=== PATIENT | female | born 1955 | race Caucasian/White ===

== ENCOUNTER 2019-02-23 23:01 | Emergency (ER) | payer MEDICARE, OTHER ==
[~2019-02-23] VITALS: Ht 160 cm; Wt 71.2 kg
[~2019-02-23 23:01] MED LIST: HYDR-3498 PO; HYDR-4011 PO; IBUP-1542 PO; METH750T93 PO; NAPR-985 PO
[2019-02-23 23:04] VITALS: Ht 160 cm; Wt 71.2 kg
[2019-02-23] MEDS ORDERED: ONDANSETRON (ODT) 4 MG TAB ODT ONE (23:30)
[2019-02-23] MEDS ORDERED: HYDROCODONE/APAP (5/325) TAB PO ONE (23:30)
[2019-02-24 00:48] VITALS: BP 159/89; PULSE 81; RESP 20
== END 2019-02-24 05:21 | disposition home or self-care (01) ==
LOC: E/R 23:01
DX: S16.1XXA Strain of muscle, fascia and tendon at neck level, initial encounter (principal); S39.012A Strain of muscle, fascia and tendon of lower back, initial encounter; S80.01XA Contusion of right knee, initial encounter; V49.40XA Driver injured in collision with unspecified motor vehicles in traffic accident, initial encounter
CPT/HCPCS: 70450; 72125; 72131; 73562; Z7502; Z7610